=== PATIENT | female | born 2000 | race Caucasian/White ===

== ENCOUNTER 2022-08-08 09:39 | Emergency (ER) | payer OTHER, SELFPAY ==
[2022-08-08 09:40] VITALS: BP 121/88; PULSE 92; RESP 16; TEMP 36.9; O2SAT 99
--- NOTE | 2022-08-08 09:50 | ED.GENADULT ---
HPI - General Adult General Chief complaint: Upper Respiratory Infection Stated complaint: COUGH Time Seen by Provider: 08/08/22 09:43 History of Present Illness HPI narrative: Joelle is a previously healthy 21F that woke up with cold sweats, congestion, no smell and coughing. She has been exposed to flu and covid. She denies CP, dyspnea and lightheadedness. She is nauseated as well. Related Data Home Medications Medication Instructions Recorded Confirmed No Home Medications 08/08/22 08/08/22 Allergies Allergy/AdvReac Type Severity Reaction Status Date / Time No Known Allergies Allergy Verified 08/08/22 10:11 Review of Systems Review of Systems: All systems reviewed & are unremarkable except as noted in HPI and below Exam Const: General: healthy appearing and no acute distress Nutritional Appearance: well nourished Orientation/consciousness: patient oriented x3 HENMT: Head: normal to inspection Ears: external ears normal Face/Nose/Sinus: Normal external nose present Face and sinus: normal facial exam Eyes: Conjunctivae: conjunctivae normal Pupils: Equal, round and reactive pupils present EOM: EOMs intact bilaterally Neck: Neck: normal visual inspection Chest: Chest palpation & inspection: normal inspection of the chest Resp: Effort & Inspection: normal respiratory effort Auscultation: clear to auscultation bilaterally Cardio: Rate: regular rate Rhythm: regular rhythm GI: Inspection: non-distended Skin: General skin exam: normal color Rashes: no rashes Neuro: General: patient oriented x3 Cranial nerves: Yes Nystagmus not present Extrem: General: normal to inspection Psych: Mental Status: mental status grossly normal Course Course Emergency Course: ordered viral testing. She declined meds for nausea Vital Signs Vital signs: Vital Signs Temperature 98.4 F 08/08/22 09:40 Pulse Rate 92 08/08/22 09:40 Respiratory Rate 16 08/08/22 09:40 Blood Pressure 121/88 08/08/22 09:40 Pulse Oximetry 99 08/08/22 09:40 Oxygen Delivery Room Air 08/08/22 09:40 Temperature 98.4 F 08/08/22 09:40 Pulse Rate 92 08/08/22 09:40 Respiratory Rate 16 08/08/22 09:40 Blood Pressure 121/88 08/08/22 09:40 Pulse Oximetry 99 08/08/22 10:01 Oxygen Delivery Room Air 08/08/22 10:01 Medical Decision Making Vital Signs Vital Signs: Vital Signs Temperature 98.4 F 08/08/22 09:40 Pulse Rate 92 08/08/22 09:40 Respiratory Rate 16 08/08/22 09:40 Blood Pressure 121/88 08/08/22 09:40 Pulse Oximetry 99 08/08/22 09:40 Oxygen Delivery Room Air 08/08/22 09:40 Temperature 98.4 F 08/08/22 09:40 Pulse Rate 92 08/08/22 09:40 Respiratory Rate 16 08/08/22 09:40 Blood Pressure 121/88 08/08/22 09:40 Pulse Oximetry 99 08/08/22 10:01 Oxygen Delivery Room Air 08/08/22 10:01 Lab Data Labs: Lab Results 08/08/22 Range/Units 09:43 Influenza A (RT-PCR) Negative (Negative) Influenza B (RT-PCR) Negative (Negative) RSV (RT-PCR) Negative (Negative) SARS-CoV-2 RNA (RT-PCR) Negative (Negative) Discharge Plan Discharge Clinical Impression: Upper respiratory infection Patient Disposition: Home, Self-Care Condition: Stable Instructions: Upper Respiratory Infection (ED) Prescriptions: No Action No Home Medications Follow-up/Referrals: UNKNOWN,DOCTOR [Primary Care Provider] - Stand Alone Forms: Work/School Release IP
[2022-08-08 10:01] VITALS: O2SAT 99
[2022-08-08 10:22] LABS: Influenza A QL RT-PCR Negative (Negative); Influenza B QL RT-PCR Negative (Negative); SARS-CoV-2 RNA PCR Negative (Negative)
[2022-08-08 10:27] LABS: RSV RNA, RT-PCR Negative (Negative)
[2022-08-08 10:32] VITALS: BP 117/66; PULSE 96; RESP 16; TEMP 36.8; O2SAT 100
== END 2022-08-08 10:47 | disposition home or self-care (01) ==
LOC: CHSED 10:36
PROVIDERS: Emergency Provider Family Medicine
DX: J06.9 Acute upper respiratory infection, unspecified (principal); Z20.822 Contact with and (suspected) exposure to COVID-19
CPT/HCPCS: 87637; 99283

== ENCOUNTER 2023-01-22 07:52 | Emergency (ER) | payer OTHER, SELFPAY ==
--- NOTE | ~2023-01-22 | XR_ITS ---
EXAMINATION: XR abdomen/kub 1V DATE: 01/22/2023 09:09 INDICATION: Constipation. Stomach pain. TECHNIQUE: A supine view of the abdomen on 2 radiographs was obtained. COMPARISON: None. FINDINGS: There are no dilated loops of bowel. There is a moderate volume of stool in the colon. IMPRESSION: 1. Normal bowel gas pattern. Reviewed, dictated and finalized at location A.
[2023-01-22 07:56] VITALS: BP 110/72; PULSE 81; RESP 20; TEMP 37.2; O2SAT 100
--- NOTE | 2023-01-22 08:19 | ED.ABDPAIN ---
HPI - Abdominal Pain General Chief Complaint: Abdominal Pain Stated Complaint: nausea Time Seen by Provider: 01/22/23 08:18 Source: patient and RN notes reviewed Mode of arrival: ambulatory Limitations: no limitations History of Present Illness MD elicited complaint: abdominal pain Pertinent past history: constipation Onset (ago): hour(s) (3) Pain Consistency: intermittent Location: diffuse Severity: mild Quality: cramping and aching Radiation: none Migration to: no migration Exacerbating factors: eating Relieving factors: nothing Associated symptoms: nausea and vomiting Related Data Allergies Allergy/AdvReac Type Severity Reaction Status Date / Time No Known Allergies Allergy Verified 01/22/23 08:01 Review of Systems Review of Systems: All systems reviewed & are unremarkable except as noted in HPI and below PMFSH Past Medical History Medical History (Updated 01/22/23 @ 09:16 by Diallo Herron MD) No active medical problems Surgical History Surgical History (Updated 01/22/23 @ 08:35 by Diallo Herron MD) No pertinent past surgical history Exam Const: General: healthy appearing, no acute distress and alert Nutritional Appearance: well nourished Orientation/consciousness: patient oriented x3 Limitations: no limitations Other: female tech in room during examination. HENMT: Head: normal to inspection Ears: external ears normal Face/Nose/Sinus: Normal external nose present Face and sinus: normal facial exam Mouth: Yes moist mucous membranes Eyes: Conjunctivae: conjunctivae normal Pupils: Equal, round and reactive pupils present EOM: EOMs intact bilaterally Neck: Neck: normal visual inspection Resp: Effort & Inspection: normal respiratory effort Auscultation: clear to auscultation bilaterally Cardio: Rate: regular rate Rhythm: regular rhythm GI: GI Palp: Yes Soft to palpation, Yes Tenderness to palpation present (GI) ( Mild generalized) and No Guarding due to palpation present (GI) Auscultation: normal bowel sounds Back/Spine/Pelvis: Cervical Spine: cervical ROM normal Thoracic/Lumbar Spine: thoraco-lumbar ROM normal Skin: General skin exam: normal color Rashes: no rashes Neuro: General: patient oriented x3, moves all extremities, no focal motor deficits and CN's II-XI intact bilaterally Speech: normal speech Gait exam (Neuro): Normal gait present Extrem: General: normal to inspection and no clubbing, cyanosis or edema Psych: Mental Status: mental status grossly normal Affect: normal affect Attitude: cooperative Course Vital Signs Vital signs: Vital Signs Temperature 37.2 C 01/22/23 07:56 Pulse Rate 81 01/22/23 07:56 Respiratory Rate 20 01/22/23 07:56 Blood Pressure 110/72 01/22/23 07:56 Pulse Oximetry 100 01/22/23 07:56 Temperature 37.2 C 01/22/23 07:56 Pulse Rate 81 01/22/23 07:56 Respiratory Rate 20 01/22/23 07:56 Blood Pressure 110/72 01/22/23 07:56 Pulse Oximetry 100 01/22/23 07:56 MDM - Abdominal Pain Differential Diagnosis Differential diagnosis: Likely abdominal pain, constipation and small bowel obstruction Discharge Plan Discharge Clinical Impression: Constipation Qualifiers: Constipation type: unspecified constipation type Qualified Code(s): K59.00 - Constipation, unspecified Patient Disposition: Home, Self-Care Condition: Stable Instructions: Constipation (ED) Prescriptions: New bisacodyl [Dulcolax (bisacodyl)] 10 mg suppository 10 mg RECTAL DAILY PRN (Reason: constipation) Qty: 12 0RF polyethylene glycol 3350 [Miralax] 17 gram/dose powder 17 g PO DAILY PRN (Reason: constipation) Qty: 119 0RF Follow-up/Referrals: UNKNOWN,DOCTOR [Primary Care Provider] - Time of Disposition: 09:19
--- NOTE | 2023-01-22 08:23 | PC.NURSE ---
assist dr with patient assessment
[2023-01-22 08:54] LABS: Pregnancy On Board Control Positive; Urine Pregnancy Test Negative
[2023-01-22 09:20] VITALS: BP 108/70; PULSE 78; RESP 18; O2SAT 98
--- NOTE | 2023-01-22 09:28 | PC.NURSE ---
PT HAD DECLINED ENEMA, REQUESTED RX. ERP WAS NOTIFIED.
== END 2023-01-22 09:20 | disposition home or self-care (01) ==
PROVIDERS: Emergency Provider Emergency Medicine
DX: K59.00 Constipation, unspecified (principal)
CPT/HCPCS: 74018; 81025; 99283

== ENCOUNTER 2025-04-07 16:28 | Emergency (ER) | payer OTHER, SELFPAY ==
[2025-04-07 16:30] VITALS: BP 114/94; PULSE 110; RESP 18; TEMP 36.8; O2SAT 99
--- OUTSIDE RECORDS SUMMARY | 2025-04-07 16:31 | XMS_ITS | Encounter Summary ---
Author Organization [facility] Address [address] [place] [address] Care Team Providers Care Environmental Economist Name Role Phone None, Provider MD Primary Care Provider Unavaila ble Encounter Details Date Type Department Care Team (Late st Contact Info) Description 01/17/2019 Abstract SFL CONVERSION [address] [place] [address] , Generic Conversion, Social History Tobacco Use Types Packs/Day Years Used Date Smoking Tobacco: Never Assessed Comments Unknown Sex and Gender Information Value Date Recorded Sex Assigned at Not on file 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
--- OUTSIDE RECORDS SUMMARY | 2025-04-07 16:31 | XMS_ITS | Clinical Summary ---
Author Organization [email or web address] Address [address] [place] [address] Care Team Providers Care Cello Teacher Name Role Phone Unavailable Primary Care Provider Unavailabl e Source Comments [email or web address],non-owned Affiliates and Associated Physician Practices is amultiple site organization consisting of ambulatory clinics and hospital sitesin [place], [place], [place] and [place]. This disclosure is being madepursuant to the Care Everywhere program and may not contain all information available regarding this patient. Last updated [email or web address] Allergies No known active allergies Medications * Be aware that medications may not be up to date on this document. Alwaysverify current medications with the patient. cephalexin (Keflex) 500 MG capsule Take 1 (one) capsule by mouth 4 times daily for 10 days 40 capsule 03/21/2025 03/31/20 25 Active Problems Problem Noted Date Diagnosed Date Urinary tract infection without hematuria 2024 Encounters Date Type Department Care Team Description 03/21/2025 4:25 AM CDT - 03/21/2025 5:10 AM CDT Emergency [facility] - Emergency Department [address] [place] [address] Haylie Briscoe, ANDREW-GODWIN Urinary tract infection without hematuria, site unspecified Discharge Disposition: Home or Self Care 03/21/2025 Travel from Last 3 Months Social History Tobacco Use Types Packs/Day Years Used Date Smoking Tobacco: Never Smokeless Tobacco: Never Tobacco Cessation:Counseling Given: Not Answered Alcohol Use Standard Drinks/Week Comments Not Currently 0 (1 standard drink = 0.6 oz pur e alcohol) Comments Unknown Sex and Gender Information Value Date Recorded Sex Assigned at Female 03/21/2025 4:58 AM CDT 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 Gender Identity Not on file Sexual Orientation Not on file Last Filed Vital Signs Vital Sign Reading Time Taken Comments Blood Pressure 126/90 03/21/2025 4:25 AM CDT Pulse 88 03/21/2025 5:13 AM CDT Temperature 36.6 C (97.8 F) 03/21/2025 4:25 AM CDT Respiratory Rate 16 03/21/2025 5:13 AM CDT Oxygen Saturation 97% 03/21/2025 5:13 AM CDT Inhaled Oxygen Concentration - - Weight 72.6 kg (160 lb) 03/21/2025 4:25 AM CDT Height 170.2 cm (5' 7) 03/21/2025 4:25 AM CDT Body Mass Index 25.06 03/21/2025 4:25 AM CDT Plan of Treatment Health Maintenance Due Date Last Done Comments HIV SCREENING 2017 HPV VACCINE (1 - 3-dose series) 2017 CHLAMYDIA/GONORRHEA SCREENING 2018 MENINGOCOCCAL (Group B) VACC INE SHARED DECISION-MAKING (1 of 2 - Standard) 2018 HEPATITIS C SCREENING 12/09/2020 DTAP/TDAP/TD VACCINES (1 - Tdap) 2021 HEPATITIS B VACCINE (1 of 3 - 19+ 3-dose series) 2021 PAP SMEAR 12/15/2023 COVID-19 VACCINE (1 - 2023-2 5 season) 2024 DEPRESSION SCREENING 08/12/2024 INFLUENZA VACCINE (#1) 2025 07/13/2003 ZOSTER VACCINE (1 of 2) 2052 HIB VACCINE Aged Out No longer eligi ble based on patient's age to complete this topic MENINGOCOCCAL GROUPS A/C/Y/W VACCINE Aged Out No longer eligible b ased on patient's age to complete this topic PNEUMOCOCCAL VACCINE Aged Out No long er eligible based on patient's age to complete this topic Procedures Procedure Name Priority Date/Time Associated Diagnosis Comments URINE MICROSCOPIC ONLY REFLEX TO CULTURE STAT 03/21/2025 4:38 AM CDT URINALYSIS REFLEX MICROSCOPIC REFLEX CULTURE STAT 03/21/2025 4:38 AM CDT URINE CULT RST RFLXED Routine 03/21/2025 4:38 AM CDT CULTURE URINE STAT 03/21/2025 4:38 AM CDT from Last 3 Months Results * (ABNORMAL) URINE MICROSCOPIC ONLY REFLEX TO CULTURE (03/21/2025 4:38 AM CDT) WBC UA Packed Field(A) None Seen, 0-4 # /hpf 03/21/2025 4:55 AM CDT [facility] ([facility]) RBC UA 0-2 None Seen, 0-2 # /hpf 03/21/2025 4:55 AM CDT [facility] ([facility]) Epithelial Cell UA Few None, Few # /hpf 03/21/2025 4:55 AM CDT [facility] ([facility]) Bacteria UA Moderate(A ) None, Few, Rare 03/21/2025 4:55 AM CDT [facility] ([facility]) Mucus UA Small Amount None, Small Amount 03/21/2025 4:55 AM CDT [facility] ([facility]) Urine URINE SPECIMEN OBTAINED BY CLEAN CATCH PROCEDURE / Unknown Collection / Unknown 03/21/2025 4:38 AM CDT 03/21/2025 4:42 AM CDT Haylie Briscoe TAPE CONTROL SKIN OR SPAR MILL OPERATOR-SUBSTATION OPERATOR LAB - URINALYSIS O RDERABLES Final Result [facility] ([facility]) [address] [place] [address] * (ABNORMAL) URINE CULT RST RFLXED (03/21/2025 4:38 AM CDT) Result 1 Comment(A ) 03/24/2025 11:06 PM CDT [facility] ([facility]) Comment: Staphylococcus saprophyticus The CLSI does not advise routine susceptibility testing of urinary tract isolates of Staphylococcus saprophyticus, because acute, uncomplicated urinary tract infections caused by this organism respond to concentrations achieved in urine of antimicrobial agents commonly used to treat these infections, such as nitrofurantoin, a fluoroquinolone, or trimethoprim with or without sulfamethoxazole. CLSI, [id number], 2005. 50,000-100,000 colony forming units per mL Urine URINE SPECIMEN OBTAINED BY CLEAN CATCH PROCEDURE / Unknown Collection / Unknown 03/21/2025 4:38 AM CDT 03/21/2025 4:42 AM CDT [facility] ([facility]) - 03/24/2025 11:06 PM CDT Performed at: [address] [place] [id number] Steel Engraver: Sarmad Victor PhD, Phone: [phone] Haylie Briscoe TAPE CONTROL SKIN OR SPAR MILL OPERATOR-SUBSTATION OPERATOR LAB - MICROBIOLOGY ORDERABLES Final Result Performing Organization Address City/State/[facility] Co de Phone Number [facility]) [address] [place] [address] * (ABNORMAL) URINALYSIS REFLEX MICROSCOPIC REFLEX CULTURE (03/21/2025 4:38 AM CDT) Color UA Yellow Yellow, Patsy 03/21/2025 4:47 AM CDT [facility] ([facility]) Clarity UA Cloudy(A) Clear, Hazy 03/21/2025 4:47 AM CDT [facility] ([facility]) Specific [place] UA 1.020 1.000, 1.005, 1.010, 1.015, 1.020, 1.025 03/21/2025 4:47 AM CDT [facility] ([facility]) pH UA 7.0 5.0, 5.5, 6.0, 6.5, 7.0, 7.5, 8.0, Color Interference 03/21/2025 4:47 AM CDT [facility] ([facility]) Protein UA 30 mg/dL(A) Negative 03/21/2025 4:47 AM CDT [facility] ([facility]) Glucose UA Negative Negative, Color Interference 03/21/2025 4:47 AM CDT [facility] ([facility]) Ketone UA Negative Negative 03/21/2025 4:47 AM CDT [facility] ([facility]) Bilirubin UA Negative Negative 03/21/2025 4:47 AM CDT [facility] ([facility]) Blood UA Trace(A) Negative 03/21/2025 4:47 AM CDT [facility] ([facility]) Leukocyte Esterase UA Moderate(A) Negative 03/21/2025 4:47 AM CDT [facility] ([facility]) Nitrite UA Negative Negative 03/21/2025 4:47 AM CDT [facility] ([facility]) Urobilinogen UA 0.2 0.2, 1.0 4:47 AM CDT [facility] ([facility]) Urine Microscopy Urine microscopy to follow 03/21/2025 4:47 AM CDT [facility] ([facility]) Urine URINE SPECIMEN OBTAINED BY CLEAN CATCH PROCEDURE / Unknown Collection / Unknown 03/21/2025 4:38 AM CDT 03/21/2025 4:42 AM CDT Haylie Briscoe TAPE CONTROL SKIN OR SPAR MILL OPERATOR-SUBSTATION OPERATOR LAB - URINALYSIS O RDERABLES Final Result [facility] ([facility]) [address] [place] [address] * (ABNORMAL) CULTURE URINE (03/21/2025 4:38 AM CDT) Urine Culture Routine Final report(A) 03/24/2025 11:06 PM CDT [facility] ([facility]) Urine URINE SPECIMEN OBTAINED BY CLEAN CATCH PROCEDURE / Unknown Collection / Unknown 03/21/2025 4:38 AM CDT 03/21/2025 4:42 AM CDT Narrative [facility] ([facility]) - 03/24/2025 11:06 PM CDT Performed at: [facility] [id number] Steel Engraver: Sarmad Victor PhD, Phone: [phone] us Haylie Briscoe TAPE CONTROL SKIN OR SPAR MILL OPERATOR-SUBSTATION OPERATOR LAB - MICROBIOLOGY ORDERABLES Final Result [facility] ([facility]) [address] [place] [address] from Last 3 Months
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
--- OUTSIDE RECORDS SUMMARY | 2025-04-07 16:58 | XMS_ITS | Clinical Summary ---
Author Organization [facility] [employer] Address [address] [place] [address] Care Team Providers Care Livestock Feeder Name Role Phone Unavailable Primary Care Provider Unavailabl e Source Comments [facility] [employer],non-owned Affiliates and Associated Physician Practices is amultiple site organization consisting of ambulatory clinics and hospital sitesin [place], [place], [place]. This disclosure is being madepursuant to the Care Everywhere program and may not contain all information available regarding this patient. 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 Gender Identity Not on file Sexual Orientation [...] 0-4 # /hpf 03/21/2025 4:55 AM CDT [facility] ([facility]) RBC UA 0-2 None Seen, 0-2 # /hpf 03/21/2025 4:55 AM CDT [facility] ([facility]) Epithelial Cell UA Few None, Few # /hpf 03/21/2025 4:55 AM CDT [facility] ([facility]) Bacteria UA Moderate(A ) None, Few, Rare 03/21/2025 4:55 AM CDT [facility] ([facility]) Mucus UA Small Amount None, Small Amount 03/21/2025 4:55 AM CDT [facility] ([facility]) Urine URINE SPECIMEN OBTAINED BY CLEAN CATCH PROCEDURE / Unknown Collection / Unknown 03/21/2025 4:38 AM CDT 03/21/2025 4:42 AM CDT Haylie Briscoe MOTTLER OPERATOR-HYBRID TECHNOLOGIST LAB - URINALYSIS O RDERABLES Final Result [facility] ([facility]) [address] [place] [address] * (ABNORMAL) URINE CULT RST RFLXED (03/21/2025 4:38 AM CDT) Result 1 Comment(A ) 03/24/2025 11:06 PM CDT [facility] ([facility]) Comment: Staphylococcus saprophyticus The CLSI does not advise routine susceptibility testing of urinary tract isolates of Staphylococcus saprophyticus, because acute, uncomplicated urinary tract infections caused by this organism respond to concentrations achieved in urine of antimicrobial agents commonly used to treat these infections, such as nitrofurantoin, a fluoroquinolone, or trimethoprim with or without sulfamethoxazole. CLSI, V465-F98, 2005. 50,000-100,000 colony forming units per mL Urine URINE SPECIMEN OBTAINED BY CLEAN CATCH PROCEDURE / Unknown Collection / Unknown 03/21/2025 4:38 AM CDT 03/21/2025 4:42 AM CDT [facility] ([facility]) - 03/24/2025 11:06 PM CDT Performed at: [address] [place] [id number] Vocational Counselor: Sarmad Victor PhD, Phone: [phone] Haylie Briscoe MOTTLER OPERATOR-HYBRID TECHNOLOGIST LAB - MICROBIOLOGY ORDERABLES Final Result Performing Organization Address City/State/[facility] Co de Phone Number [facility]) [address] [place] [address] * (ABNORMAL) URINALYSIS REFLEX MICROSCOPIC REFLEX CULTURE (03/21/2025 4:38 AM CDT) Color UA Yellow Yellow, Patsy 03/21/2025 4:47 AM CDT [facility] ([facility]) Clarity UA Cloudy(A) Clear, Hazy 03/21/2025 4:47 AM CDT [facility] ([facility]) Specific [place] UA 1.020 1.000, 1.005, 1.010, 1.015, 1.020, 1.025 03/21/2025 4:47 AM CDT [facility] ([facility]) pH UA 7.0 5.0, 5.5, 6.0, 6.5, 7.0, 7.5, 8.0, Color Interference 03/21/2025 4:47 AM CDT [facility] ([facility]) Protein UA 30 mg/dL(A) Negative 03/21/2025 4:47 AM CDT [facility] ([facility]) Glucose UA Negative Negative, Color Interference 03/21/2025 4:47 AM CDT [facility] ([facility]) Ketone UA Negative Negative 03/21/2025 4:47 AM CDT [facility] ([facility]) Bilirubin UA Negative Negative 03/21/2025 4:47 AM CDT [facility] ([facility]) Blood UA Trace(A) Negative 03/21/2025 4:47 AM CDT [facility] ([facility]) Leukocyte Esterase UA Moderate(A) Negative 03/21/2025 4:47 AM CDT [facility] ([facility]) Nitrite UA Negative Negative 03/21/2025 4:47 AM CDT [facility] ([facility]) Urobilinogen UA 0.2 0.2, 1.0 4:47 AM CDT [facility] ([facility]) Urine Microscopy Urine microscopy to follow 03/21/2025 4:47 AM CDT [facility] ([facility]) Urine URINE SPECIMEN OBTAINED BY CLEAN CATCH PROCEDURE / Unknown Collection / Unknown 03/21/2025 4:38 AM CDT 03/21/2025 4:42 AM CDT Haylie Briscoe MOTTLER OPERATOR-HYBRID TECHNOLOGIST LAB - URINALYSIS O RDERABLES Final Result [facility] ([facility]) [address] [place] [address] * (ABNORMAL) CULTURE URINE (03/21/2025 4:38 AM CDT) Urine Culture Routine Final report(A) 03/24/2025 11:06 PM CDT [facility] ([facility]) Urine URINE SPECIMEN OBTAINED BY CLEAN CATCH PROCEDURE / Unknown Collection / Unknown 03/21/2025 4:38 AM CDT 03/21/2025 4:42 AM CDT Narrative [facility] ([facility]) - 03/24/2025 11:06 PM CDT Performed at: [facility] [address] [id number] Vocational Counselor: Sarmad Victor PhD, Phone: [phone] us Haylie Briscoe MOTTLER OPERATOR-HYBRID TECHNOLOGIST LAB - MICROBIOLOGY ORDERABLES Final Result [facility] ([facility]) [address] [place] [address] from Last 3 Months
--- OUTSIDE RECORDS SUMMARY | 2025-04-07 16:58 | XMS_ITS | Encounter Summary ---
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
[2025-04-07 17:00] LABS: Hematocrit 40.4 % (35.0-49.0); Hemoglobin 13.1 g/dL (12.0-15.0); Immature Granulocyte Percent A 0.1 % (0.0-0.0); Lymphocytes Absolute Auto 1.47 K/mm3 (1.10-4.50); Mean Corpuscular HGB Conc 32.4 g/dL (32-36); Mean Corpuscular Hemoglobin 28.9 pg (27.0-31.0); Mean Corpuscular Volume 89.0 fL (78.0-102.0); Nucleated Red Blood Cells Absolute Auto 0.00 K/mm3 (0.00-0.00); Nucleated Red Blood Cells Perc 0.0 % (0-0.0); Platelet Count Result 297 K/mm3 (150-420); Red Blood Count 4.54 M/mm3 (4.20-5.40); White Blood Count 6.8 K/mm3 (4.8-10.8)
[2025-04-07 17:03] LABS: Add Urine Microscopic? YES; Appearance Urine Clear (Clear); Glucose Urine UA Negative (Negative); Leukocyte Esterase Ur 1+ LEU/UL (Negative); Nitrate Urine Negative (Negative); Specific Grav Ur 1.020 (1.010-1.020)
[2025-04-07 17:10] LABS: Pregnancy On Board Control Positive
[2025-04-07 17:12] LABS: Alanine Aminotransferase 13 U/L (6-35); Albumin Level 4.7 g/dL (3.5-5.1); Alkaline Phosphatase 32 U/L (38-126); Anion Gap 10 mmol/L (4-12); Aspartate Amino Transferase 23 U/L (14-36); Bilirubin,Total 0.5 mg/dL (0.2-1.3); Blood Urea Nitrogen 13 mg/dL (7-17); Calcium 10.0 mg/dL (8.4-10.2); Carbon Dioxide 27 mmol/L (22-30); Chloride 103 mmol/L (98-107); Estimated CRCL calculation 114 ml/min; Estimated Glomerular Filt Rate > 60; Glucose 140 mg/dL (65-110); Lipase 58 U/L (23-300); Osmolality Calculated 292 mOsm/kg (285-295); Potassium 4.0 mmol/L (3.4-5.0); Sodium 140 mmol/L (137-145); Total Protein 7.9 g/dL (6.3-8.2)
[2025-04-07 17:23] LABS: HIV 1 P24 AG Negative (Negative); HIV 1/2 AB Negative (Negative)
[2025-04-07 17:45] VITALS: BP 104/74; PULSE 94; RESP 18; TEMP 36.8; O2SAT 98
[2025-04-09 07:09] LABS: RPR Non Reactive (Non Reactive)
--- NOTE | 2025-04-10 17:28 | PC.NURSE ---
FINAL URINE CULTURE REPORT; MIXED UROGENITAL TYRELL, NO GROWTH, NO FURTHER ACTION OR TREATMENT NEEDED PER ERP DR. CUNNINGHAM.
== END 2025-04-07 17:50 | disposition home or self-care (01) ==
PROVIDERS: Emergency Provider Internal Medicine Critical Care Medicine; PCP Nurse Practitioner Family
DX: M54.50 Low back pain, unspecified (principal)
CPT/HCPCS: 36415; 80053; 81001; 81025; 83605; 83690; 85025; 86592; 87086; 87491; 87591; 87806; 99283